=== PATIENT | male | born 1940 | race Caucasian/White ===

== ENCOUNTER 2022-11-20 12:13 | Emergency (ER) | payer MEDICARE, BC ==
[2022-11-20 13:18] LABS: ESTIMATED GFR 56 mL/min (>60)
[2022-11-20] MEDS ORDERED: Iopamidol 755 Mg/ML 100 ML Bottle IV ONE (14:17)
== END 2022-11-20 15:17 | disposition home or self-care (01) ==
LOC: FB.ED 12:13
DX: I26.99 Other pulmonary embolism without acute cor pulmonale (principal); Z79.01 Long term (current) use of anticoagulants
CPT/HCPCS: 36415; 71046; 71275; 80053; 84484; 85025; 85379; 86140; 93005; 93010; 99283; 99285; Q9967